=== PATIENT | female | born 1950 | race Caucasian/White ===

== ENCOUNTER → 2016-11-09 | Outpatient (CLI) | payer BC, OTHER ==
[~2016-11-09] MED LIST: AMLO5TAB88 PO; LOSA100T14 PO; TRAM50TA3 PO
== END | disposition home or self-care (01) ==
LOC: US 11:53
PROVIDERS: ATTEND Obstetrics & Gynecology Obstetrics
DX: D39.10 Neoplasm of uncertain behavior of unspecified ovary (principal)
CPT/HCPCS: 76830; 76856

== ENCOUNTER → 2016-11-17 | Outpatient (CLI) | payer BC, OTHER | END | disposition home or self-care (01) | LOC: CT 14:03 | PROVIDERS: ATTEND Internal Medicine | DX: R51 Headache (principal) | CPT/HCPCS: 70450 ==

== ENCOUNTER → 2016-12-18 | Outpatient (CLI) | payer BC, OTHER | END | disposition home or self-care (01) | LOC: LAB 06:33 | PROVIDERS: ATTEND Obstetrics & Gynecology Obstetrics | DX: N83.209 Unspecified ovarian cyst, unspecified side (principal) | CPT/HCPCS: 86304; 87186 ==

== ENCOUNTER → 2016-12-22 | Day surgery (SDC) | payer BC, OTHER ==
[~2016-12-22] MED LIST changes: +LIDOCAINE 1%/EPI 1:200,000 10 ML VIAL IJ ONE; +SODIUM BICARBONATE 4% (2.4MEQ) 5ML VIAL IV ONE
== END ==
LOC: RAD 09:37
PROVIDERS: ATTEND Surgery
DX: N63.10 Unspecified lump in the right breast, unspecified quadrant (principal)
CPT/HCPCS: 19083; 88305; A4648; J3490